=== PATIENT | male | born 1970 | race Caucasian/White ===

== ENCOUNTER 2020-11-10 08:23 | Outpatient (CLI) | payer BC, SELFPAY ==
[2020-11-10 09:20] LABS: Basophils Absolute Auto 0.1 K/mm3 (0.0-0.1); Basophils Percent Auto 0.8 % (0.2-1.2); Eosinophils Absolute Auto 0.2 K/mm3 (0-0.3); Eosinophils Percent Auto 2.6 % (0-4.4); Hematocrit 49.7 % (42.0-52.0); Hemoglobin 16.6 g/dL (14.0-18.0); Immature Granulocyte Absolute 0.02 K/mm3 (0.00-0.031); Immature Granulocyte Percent A 0.3 % (0-0.5); Lymphocytes Absolute Auto 1.99 K/mm3 (0.9-3.2); Lymphocytes Percent Auto 27.7 % (18.3-44.2); Mean Corpuscular HGB Conc 33.4 g/dl (32-36); Mean Corpuscular Hemoglobin 30.7 pg (26-34); Mean Platelet Volume 10.9 fl (7.4-10.4); Monocytes Absolute Auto 0.7 K/mm3 (0.1-0.6); Monocytes Percent Auto 9.2 % (2.6-8.5); Neutrophils Absolute Auto 4.3 K/mm3 (1.3-6.7); Neutrophils Percent Auto 59.4 % (45.5-73.1); Platelet Count Result 243 k/mm3 (150-375); Red Cell Distribution Width 12.4 % (11.5-14.5); White Blood Count 7.2 K/mm3 (4.5-10.0)
== END 2020-11-10 08:24 | disposition home or self-care (01) ==
PROVIDERS: PCP Family Medicine; Visit Provider Physician Assistant
DX: D72.829 Elevated white blood cell count, unspecified (principal)
CPT/HCPCS: 36415; 85025

== ENCOUNTER 2021-04-14 08:39 | Outpatient (CLI) | payer BC, SELFPAY ==
--- NOTE | ~2021-04-14 | XR_ITS ---
XR foot LT min 3V 04/14/2021 09:02 Indication: Left foot pain Procedure: 4 views left foot Comparison: No prior studies for comparison. Findings: There are mild degenerative changes at the tarsometatarsal joints. There is a degenerative calcaneal enthesophyte. Lisfranc joint is intact. Mild osteoarthritis of the first MTP joint. No fore ign bodies. Impression: 1: Mild polyarticular osteoarthritis. Reviewed, dictated and finalized at location A. Impression: 1: Mild polyarticular osteoarthritis.
== END 2021-04-14 08:40 | disposition home or self-care (01) ==
LOC: ANHIMG 08:44
PROVIDERS: PCP Family Medicine; Visit Provider Physician Assistant
DX: L84 Corns and callosities (principal); G57.93 Unspecified mononeuropathy of bilateral lower limbs; M19.072 Primary osteoarthritis, left ankle and foot
CPT/HCPCS: 73630

== ENCOUNTER 2021-09-18 09:49 | Outpatient (CLI) | payer BC, SELFPAY ==
[2021-09-18 10:28] LABS: Basophils Absolute Auto 0.1 K/mm3 (0.0-0.1); Eosinophils Absolute Auto 0.2 K/mm3 (0-0.3); Eosinophils Percent Auto 2.5 % (0-4.4); Hematocrit 53.6 % (42.0-52.0); Hemoglobin 17.9 g/dL (14.0-18.0); Immature Granulocyte Absolute 0.03 K/mm3 (0.00-0.031); Immature Granulocyte Percent A 0.4 % (0-0.5); Lymphocytes Absolute Auto 1.54 K/mm3 (0.9-3.2); Lymphocytes Percent Auto 19.3 % (18.3-44.2); Mean Corpuscular HGB Conc 33.4 g/dl (32-36); Mean Corpuscular Hemoglobin 31.7 pg (26-34); Mean Platelet Volume 10.5 fl (7.4-10.4); Monocytes Absolute Auto 0.8 K/mm3 (0.1-0.6); Monocytes Percent Auto 10.5 % (2.6-8.5); Neutrophils Absolute Auto 5.3 K/mm3 (1.3-6.7); Neutrophils Percent Auto 66.3 % (45.5-73.1); Platelet Count Result 212 k/mm3 (150-375); Red Blood Count 5.64 M/mm3 (4.6-6.20); Red Cell Distribution Width 13.2 % (11.5-14.5)
[2021-09-18 11:22] LABS: Alanine Aminotransferase 48 U/L (4-50); Albumin Level 4.3 g/dL (3.5-5.1); Alkaline Phosphatase 107 U/L (38-126); Anion Gap 5 mmol/L (8-16); Aspartate Amino Transferase 28 U/L (17-59); Bilirubin,Total 0.7 mg/dL (0.2-1.3); Blood Urea Nitrogen 13 mg/dL (9-20); Carbon Dioxide 30 mmol/L (22-30); Chloride 105 mmol/L (98-107); Cholesterol 180 mg/dL (0-200); Estimated Glomerular Filt Rate > 60; Glucose 100 mg/dL (65-110); HDL Direct 32 mg/dL; Potassium 4.4 mmol/L (3.4-5.0); Sodium 140 mmol/L (137-145); Triglycerides 118 mg/dL (<150)
[2021-09-18 11:34] LABS: LDL Cholesterol Direct 122 mg/dL
[2021-09-18 11:41] LABS: Hemoglobin A1C 5.7 % (<5.7)
[2021-09-18 11:51] LABS: Prostate Specific Antigen 0.7 ng/mL (< OR = 4.0)
== END 2021-09-18 09:50 | disposition home or self-care (01) ==
PROVIDERS: PCP Family Medicine; Visit Provider Nurse Practitioner Gerontology
DX: E78.2 Mixed hyperlipidemia (principal); R03.0 Elevated blood-pressure reading, without diagnosis of hypertension; R73.01 Impaired fasting glucose; Z12.5 Encounter for screening for malignant neoplasm of prostate
CPT/HCPCS: 36415; 80053; 80061; 83036; 84153; 85025; G0103

== ENCOUNTER 2021-10-28 08:35 | Outpatient (CLI) | payer BC, SELFPAY ==
--- NOTE | ~2021-10-28 | MR_ITS ---
EXAMINATION: MR foot LT wo/w con DATE: 10/28/2021 10:13 INDICATION: Left foot ulcer TECHNIQUE: Magnetic resonance imaging (MRI) of the left fore/mid foot was performed without and with 20 mL Multihance intravenous contrast. Sequences included axial, sagittal and coronal T1-weighted FSE , sagittal fluid sensitive FSE STIR, axial and coronal T2-weighted FS FSE, axial T1-weighted FS FSE a nd postcontrast axial and coronal T1-weighted FS FSE. COMPARISON: None FINDINGS: Bone alignment is normal. No fracture. Moderate osteoarthritis at the naviculocuneiform articulation with subarticular edema and cystlike changes at the distal aspect of the navicula. Additional mild to moderate osteoarthritis at the tarsal metatarsal joints with small amount of edema-like marrow signa l change at the base of the fourth metatarsal. Mild osteoarthritis at the first metatarsophalangeal a nd a few of the interphalangeal joints. Physiologic amount fluid in the joint spaces. There is focal skin thickening and a shallow ulceration plantar to the head of the second metatarsal with mild edema and non masslike enhancement in the underlying plantar subcutaneous fat. No abscess or evident deepe r extending sinus tract. No pathologic marrow signal changes to suggest osteomyelitis. 7 x 4 x 5 mm n onenhancing ganglion cyst plantar to the base of the fifth proximal phalanx. The visualized flexor an d extensor tendons as well as the Lisfranc ligament complex and the collateral ligament complex at th e metatarsophalangeal and interphalangeal joints are normal. Prominent fatty atrophy of the intrinsic musculature of the foot which could be related to chronic neuropathy. IMPRESSION: 1. Mild inflammatory change surrounding a shallow ulceration plantar to the head of the second metata rsal without underlying abscess or osteoarthritis. 2. Mild to moderate osteoarthritis most prominent at the naviculocuneiform articulation. Reviewed, dictated and finalized at location A. IMPRESSION: 1. Mild inflammatory change surrounding a shallow ulceration plantar to the hea d of the second metatarsal without underlying abscess or osteoarthritis. 2. Mild to moderate osteoarthritis most prominent at the naviculocuneiform von culation.
[2021-10-28 09:19] LABS: Estimated Glomerular Filt Rate > 60
== END 2021-10-28 08:36 | disposition home or self-care (01) ==
LOC: ANHIMG 08:37
PROVIDERS: PCP Family Medicine; Visit Provider Podiatrist Foot & Ankle Surgery
DX: L97.523 Non-pressure chronic ulcer of other part of left foot with necrosis of muscle (principal); G60.8 Other hereditary and idiopathic neuropathies; M19.072 Primary osteoarthritis, left ankle and foot
CPT/HCPCS: 73720; A9577

== ENCOUNTER 2022-12-07 13:21 | Inpatient (IN) | payer MEDICAID, SELFPAY ==
[2022-12-07] VITALS (15 sets, daily range): BP systolic 116–134; BP diastolic 58–80; PULSE 60–73; RESP 14–20; TEMP 36.3–36.9; O2SAT 95–100; BMI 34.4
--- NOTE | ~2022-12-07 | XR_ITS ---
EXAMINATION: XR foot RT min 3V DATE: 12/08/2022 18:27 INDICATION: Right foot cellulitis. TECHNIQUE: 3 views of right foot were obtained. COMPARISON: Right foot radiographs 12/07/2022 FINDINGS: There is severe hallux valgus. No acute fracture. There are old healed fractures of the ne cks of the fourth and fifth metatarsals. There is chronic deformity of the heads of the second and th ird metatarsals and base of the third proximal phalanx with bone volume loss. There is moderate osteo arthritis of first metatarsophalangeal joint and mild osteoarthritis of some of the interphalangeal j oints and midfoot joints. There is an enthesophyte at plantar aspect of calcaneal tuberosity. There i s an ulcer medial to first proximal phalanx. IMPRESSION: 1. No evidence of osteomyelitis. 2. Severe hallux valgus. 3. Polyarticular osteoarthritis. Reviewed, dictated and finalized at location A.
--- NOTE | ~2022-12-07 | XR_ITS ---
EXAMINATION: XR foot LT min 3V DATE: 12/07/2022 14:02 INDICATION: Left foot infection. TECHNIQUE: 4 views of left foot were obtained. COMPARISON: Left foot radiographs 04/14/2021 FINDINGS: There are changes of resection of head of second metatarsal. No fracture. There is mild ost eoarthritis of many of the interphalangeal joints and midfoot joints. There is an enthesophyte at ally ntar aspect of calcaneal tuberosity. IMPRESSION: 1. No evidence of osteomyelitis. 2. Polyarticular osteoarthritis. Reviewed, dictated and finalized at location A.
--- NOTE | ~2022-12-07 | XR_ITS ---
EXAMINATION: XR foot RT min 3V DATE: 12/07/2022 14:02 INDICATION: Right foot infection. TECHNIQUE: 4 views of right foot were obtained. COMPARISON: None. FINDINGS: There is severe hallux valgus. No acute fracture. There are old healed fractures of the nec ks of the fourth and fifth metatarsals. There is chronic deformity of the heads of the second and thi rd metatarsals and base of the third proximal phalanx with bone volume loss. There is moderate osteoa rthritis of first metatarsophalangeal joint and mild osteoarthritis of some of the interphalangeal doc ints and midfoot joints. There is an enthesophyte at plantar aspect of calcaneal tuberosity. There is skin irregularity medial to first proximal phalanx. IMPRESSION: 1. No evidence of osteomyelitis. 2. Severe hallux valgus. 3. Polyarticular osteoarthritis. Reviewed, dictated and finalized at location A.
--- NOTE | 2022-12-07 13:49 | ED.EXTPRO ---
HPI - Extremity Problem General Chief complaint: Extremity Problem,Nontraumatic Stated complaint: wound on left great toe Time Seen by Provider: 12/07/22 13:25 History of Present Illness HPI Narrative: 52-year-old male presented the emergency department for evaluation of bilateral foot wounds. Patient does have a history of a callus on his right foot and had been following with podiatry but states he has not had insurance and has not had podiatry follow-up. Patient states he did get a new job recently and has been on his feet more frequently. Patient states he did develop an ulcer and loss of the skin on his great toe on the left and has a worsening wound to the pad of the great toe on the right foot. Patient states he is not diabetic but does have neuropathy and has decree sensation in feet bilaterally. Related Data Allergies Allergy/AdvReac Type Severity Reaction Status Date / Time No Known Allergies Allergy Unverified 12/07/22 14:04 Review of Systems Review of Systems: All systems reviewed & are unremarkable except as noted in HPI and below PMFSH Past Medical History Medical History Alcohol use Cellulitis, leg Elevated BP without diagnosis of hypertension Obesity due to excess calories Polyneuropathy Family History Family History Father Kidney cancer, primary, with metastasis from kidney to other site Mother Rheumatoid arthritis Social History Social History Social History: Smoking packs per day: 2 Smoking cigarettes per day: 40.0 Years smoked: 15 Smoking pack-years: 30.00 Smoking status: Former smoker Tobacco type: cigarettes and smokeless tobacco Second hand tobacco smoke exposure: No Smoking end date: 08/04/04 Alcohol intake: current Drinks per week: 1 Alcohol use details: Occasionally Substance use: former Substance use type: marijuana Last use: Last usage was yesterday morning. Lack of Transportation: No Lack of Food: Never True Current Housing: I Have Housing Concerned About Future Housing: No Difficulty Paying Gas/Electric Bills: No Difficulty Paying for Meds: No Currently Unemployed: YES Education: High School Diploma/GED Difficulty w/ Childcare or Family Care: No Living arrangements: with family Additional living arrangements comments: Pt lives with his mother after his father passed. Occupation/Education: occupation Gender identity (if verbalized by the patient): Male Sexual Orientation (if Verbalized by the Patient): Straight or Heterosexual Spiritual care concerns: Yes (Yarsani) Exam Narrative: APPEARANCE: Well appearing, no pain, no distress, well-nourished. HEAD: normocephalic, atraumatic. EYES: PERRLA/EOMI, conjunctivae clear. NOSE: Normal no drainage NECK: Supple. No adenopathy, no masses. RESPIRATORY: Airway patent, respirations nonlabored. Clear to auscultation bilaterally, no rales, rhonchi, wheezing. CARDIOVASCULAR: Regular rate and rhythm without murmurs rubs or gallops. ABDOMINAL: Soft, nontender, nondistended, normal bowel sounds MUSCULOSKELETAL: Positive skin to the great toe on the left foot and erythema and swelling on the pad of the great toe on the right foot. Erythema dorsum of both feet NEURO: Alert. Cranial nerves II through XII intact. Grossly intact SKIN: Warm, dry. Normal Color Course Course Emergency Course: 52-year-old male presented emerged department for evaluation of worsening wounds on bilateral feet. Exam is concerning for cellulitis. Patient was started on Vanco cefepime and Flagyl. X-ray showed no evidence of acute osteomyelitis. Patient does have a leukocytosis of 16.6. Chemistries are similar to his baseline. Case was discussed with hospitalist patient was accepted for admission for antibiotics. Patient was
[2022-12-07 14:04] LABS: Basophils Absolute Auto 0.1 K/mm3 (0.0-0.1); Basophils Percent Auto 0.4 % (0.2-1.2); Eosinophils Absolute Auto 0.2 K/mm3 (0-0.3); Eosinophils Percent Auto 1.4 % (0-4.4); Hematocrit 42.9 % (42.0-52.0); Immature Granulocyte Absolute 0.09 K/mm3 (0.00-0.031); Immature Granulocyte Percent A 0.5 % (0-0.5); Lymphocytes Absolute Auto 1.47 K/mm3 (0.9-3.2); Lymphocytes Percent Auto 8.9 % (18.3-44.2); Mean Corpuscular HGB Conc 32.6 g/dl (32-36); Mean Corpuscular Hemoglobin 30.3 pg (26-34); Mean Corpuscular Volume 92.9 fl (80-100); Mean Platelet Volume 10.7 fl (7.4-10.4); Monocytes Absolute Auto 1.4 K/mm3 (0.1-0.6); Monocytes Percent Auto 8.2 % (2.6-8.5); Neutrophils Absolute Auto 13.3 K/mm3 (1.3-6.7); Neutrophils Percent Auto 80.6 % (45.5-73.1); Platelet Count Result 209 k/mm3 (150-375); Red Blood Count 4.62 M/mm3 (4.6-6.20); White Blood Count 16.6 K/mm3 (4.5-10.0)
[2022-12-07] MEDS: CEFEPIME 2 GM/NS 50 ML 2 GM/50 ML BAG IVPB (14:04)
[2022-12-07 14:27] LABS: Alanine Aminotransferase 37 U/L (6-50); Albumin Level 3.8 g/dL (3.5-5.1); Alkaline Phosphatase 92 U/L (38-126); Anion Gap 3 mmol/L (8-16); Aspartate Amino Transferase 31 U/L (17-59); Bilirubin,Total 1.3 mg/dL (0.2-1.3); Blood Urea Nitrogen 11 mg/dL (9-20); Calcium 8.4 mg/dL (8.4-10.2); Carbon Dioxide 32 mmol/L (22-30); Chloride 105 mmol/L (98-107); Estimated CRCL calculation 105 ml/min; Estimated Glomerular Filt Rate > 60; Glucose 103 mg/dL (65-110); Potassium 3.6 mmol/L (3.4-5.0); Sodium 140 mmol/L (137-145)
[2022-12-07] MEDS: metroNIDAZOLE 500 MG/ISO 100ML 500 MG/100 ML BAG 100 MG IVPB ×2 (14:30→21:35)
[2022-12-07] MEDS: ACETAMINOPHEN 500 MG TABLET 1000 MG PO (21:43)
--- NOTE | 2022-12-07 22:52 | PM.IMHP ---
H&P: HPI History of Present Illness Date/Time: 12/07/22 16:00 Chief Complaint: Foot wounds. Narrative: This is a 52-year-old male with history of MRSA skin and soft tissue infection who presented to the emergency department via private vehicle from home for evaluation of bilateral foot wounds. The patient provides the following history. He recently started a new job and he has been walking a lot more than usual. A couple of days ago he noticed a white blister forming on his left great toe and it is now to the point where the skin has started to peel away from the toe. He also reports a chronic callus on the right foot which has started to drain clear but occasionally blood tinged fluid. Today he noticed that his feet were a bit red, swollen, and warm and he came in for evaluation. He has a history of calluses and previously saw a electrical repairer but has not been able to see anybody for quite some time due to lapse in insurance. He does not really have any pain in the feet due to neuropathy. 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 He was afebrile on arrival to the emergency department with stable vital signs. White blood cell count was 16.6 and the rest of his labs were pretty unremarkable with a random glucose of 103. Imaging of both feet showed no evidence of osteomyelitis. He was started on cefepime, metronidazole, and vancomycin and he is being admitted in this setting. Review of Systems Review of Systems: Twelve systems were reviewed and are negative except for as per HPI. 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 No hardware in place. Family History Family History Father Kidney cancer, primary, with metastasis from kidney to other site Mother Rheumatoid arthritis Social History Social History (Updated 05/06/23 @ 23:09 by Radha Alicea PA-C) Social History: Surrogate medical decision maker: Sage Tran, son. Code status: Full code. Smoking packs per day: 2 Smoking cigarettes per day: 40.0 Years smoked: 15 Smoking pack-years: 30.00 Smoking status: Former smoker Tobacco type: cigarettes and smokeless tobacco Second hand tobacco smoke exposure: No Smoking end date: 08/04/04 Alcohol intake: current Drinks per week: 1 Substance use: former Substance use type: marijuana Last use: Last usage was yesterday morning. Lack of Transportation: No Lack of Food: Never True Current Housing: I Have Housing Concerned About Future Housing: No Difficulty Paying Gas/Electric Bills: No Difficulty Paying for Meds: No Currently Unemployed: YES Education: High School Diploma/GED Difficulty w/ Childcare or Family Care: No Living arrangements: alone Spiritual care concerns: Yes (Jew) Meds Home Medications and Allergies Allergies Allergy/AdvReac Type Severity Reaction Status Date / Time No Known Allergies Allergy Unverified 12/07/22 14:04 Vital Signs Vital Signs - 24 hr 12/07/22 13:26 12/07/22 14:21 12/07/22 14:30 Temperature 98.4 F Pulse Rate 71 Respiratory Rate 18 Blood Pressure 124/60 Pulse Oximetry 99 100 95 Oxygen Delivery Room Air 12/07/22 14:31 12/07/22 14:45 12/07/22 14:46 Temperature Pulse Rate Respiratory Rate Blood Pressure 131/78 134/80 Pulse Oximetry 100 100 99 Oxygen Delivery 12/07/22 15:00 12/07/22 15:02 12/07/22 15:17 Temperature Pul
[2022-12-08] MEDS: metroNIDAZOLE 500 MG/ISO 100ML 500 MG/100 ML BAG 100 MG IVPB ×3 (05:23→22:12)
[2022-12-08 05:45] VITALS: BP 124/70; PULSE 56; RESP 14; TEMP 36.4; O2SAT 98
--- NOTE | 2022-12-08 05:58 | PC.NURSE ---
mrsa and wound swabs collected this shift.
[2022-12-08 06:28] LABS: Hematocrit 40.8 % (42.0-52.0); Hemoglobin 13.1 g/dL (14.0-18.0); Mean Corpuscular HGB Conc 32.1 g/dl (32-36); Mean Corpuscular Hemoglobin 30.5 pg (26-34); Mean Corpuscular Volume 94.9 fl (80-100); Platelet Count Result 174 k/mm3 (150-375); Red Cell Distribution Width 13.2 % (11.5-14.5); White Blood Count 9.7 K/mm3 (4.5-10.0)
[2022-12-08 06:56] LABS: Anion Gap 5 mmol/L (8-16); Blood Urea Nitrogen 11 mg/dL (9-20); Carbon Dioxide 26 mmol/L (22-30); Chloride 106 mmol/L (98-107); Estimated CRCL calculation 122 ml/min; Estimated Glomerular Filt Rate > 60; Glucose 106 mg/dL (65-110); Potassium 3.4 mmol/L (3.4-5.0); Sodium 137 mmol/L (137-145)
[2022-12-08 07:26] LABS: Hemoglobin A1C 5.5 % (<5.7)
[2022-12-08] MEDS: ENOXAPARIN 40 MG/0.4 ML SYRINGE SUB-Q (08:08)
[2022-12-08 14:00] VITALS: BP 115/62; PULSE 68; RESP 18; TEMP 36.6; O2SAT 97
--- NOTE | 2022-12-08 14:00 | PM.IMPN ---
Progress Note: A&P Assessment and Plan (1) Cellulitis of both feet: Code(s): L03.115 - Cellulitis of right lower limb; L03.116 - Cellulitis of left lower limb Status: Acute Assessment and Plan: Presented to the ED for worsening bilateral foot wounds Xrays do not indicate any osteomyelitis, right foot: severe hallux valgus and OA, Left: OA WBC elevated at 16.6 Blood cultures gram positive cocci in chains Wound culture collected and pending A1c 5.5 General surgery consulted thank you for your help Continue cefepime, flagyl, and vancomycin Trend labs add pain medications as indicated wound consult (2) Foot callus: Code(s): L84 - Corns and callosities Status: Acute Assessment and Plan: Plan is as detailed above. (3) History of MRSA infection: Code(s): Z86.14 - Personal history of Methicillin resistant Staphylococcus aureus infection Status: Acute Assessment and Plan: Currently on vancomycin MRSA nasal swab pending. Time Spent With Patient Time: 51 minutes Time with patient: Greater than 35 minutes Subjective Date/time seen: 12/08/22 1400 Interval history: 12/08/22 1400 patient stated that he was doing okay. He stated that he was not having any pain. He was little warm and some sweats however he stated that is from the blankets. The currently he denies any chest pain, shortness a breath, nausea, vomiting, diarrhea or constipation. Blood cultures are positive in 1 set. Will await for further growth. 12/07/22? 16:00 This is a 52-year-old male with history of MRSA skin and soft tissue infection who presented to the emergency department via private vehicle from home for evaluation of bilateral foot wounds. The patient provides the following history. He recently started a new job and he has been walking a lot more than usual. A couple of days ago he noticed a white blister forming on his left great toe and it is now to the point where the skin has started to peel away from the toe. He also reports a chronic callus on the right foot which has started to drain clear but occasionally blood tinged fluid. Today he noticed that his feet were a bit red, swollen, and warm and he came in for evaluation. He has a history of calluses and previously saw a helicopter officer but has not been able to see anybody for quite some time due to lapse in insurance. He does not really have any pain in the feet due to neuropathy. 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 He was afebrile on arrival to the emergency department with stable vital signs. White blood cell count was 16.6 and the rest of his labs were pretty unremarkable with a random glucose of 103. Imaging of both feet showed no evidence of osteomyelitis. He was started on cefepime, metronidazole, and vancomycin and he is being admitted in this setting. Review of Systems Review of Systems: All systems reviewed & are unremarkable except as noted in HPI and below Exam Narrative: General: well-nourished, well-appearing 52-year-old female, sitting up in bed, comfortable, NARD Neuro: awake, alert and oriented x4, speech clear, no focal neuro deficits noted HEENMT: normocephalic, atraumatic, EOMI, sclerae anicteric, moist oral mucosa Respiratory: Clear to auscultation bilaterally without crackles, rhonchi or wheezes, nonlabored breathing Cardio: regular rate, regular rhythm with S1-S2 Abdomen: nondistended, normoactive bowel sounds, soft, nontender to palpation Extremities: Bilateral feet have multiple areas of skin breakdown/ wounds/abrasions some are draining fluid others have black areas. . Left big toe has an area of black and yellow slough. Right big toe is raw Skin: no rashes or lesions, warm and dry Psych: appropriate mood and affect, judgm
[2022-12-08] MEDS: SILVERGEL (ELTA) 45 ML 1 APPLIC TOPICAL (15:05)
[2022-12-08] MEDS: COLLAGENASE OINT 30 GM TUBE 1 APPLIC TOPICAL ×2 (15:05→20:44)
--- NOTE | 2022-12-08 16:07 | PM.CNGS ---
Assessment and Plan Assessment and plan (1) Ulcer of toe: Code(s): L97.509 - Non-pressure chronic ulcer of other part of unspecified foot with unspecified severity Status: Acute Assessment and Plan: left great toe ulcer clean and not infected. Start silver gel dressings. f/u parer for ill fitting work boots and outpatient care. No surgery needed. (2) Ulcer of right foot, limited to breakdown of skin: Code(s): L97.511 - Non-pressure chronic ulcer of other part of right foot limited to breakdown of skin Status: Acute Assessment and Plan: large blister from medial 1st MT callous over plantar 1st MT and extending up to web between toes 1 and 2. May need bedside debridement but will try Santyl now. Both feet poor hygiene and will be washed with soap and water daily. Does have cellulitis right foot. Will get plain films. (3) Foot callus: Code(s): L84 - Corns and callosities Status: Chronic Assessment and Plan: chronic but now with associated blister. Likely due to ill fitting boots new job. (4) Cellulitis of right foot: Code(s): L03.115 - Cellulitis of right lower limb Status: Acute Assessment and Plan: right foot swollen and warm, has cellulitis. Left foot does not. History of Present Illness Consult details Consult date: 12/08/22 Requesting physician: Radha Alicea PA-C Narrative: Patient is a 52 yo man who was admitted with foot and toe ulcers on both feet with associated cellulitis. He started a new job and was on his feet a lot in ill fitting steel toed boots. He doesn't have much feeling in either foot and noted he developed the ulcers. He was seen in ED and had elevated WBC. We were asked to see for surgical evaluation. Review of Systems Review of Systems: All systems reviewed & are unremarkable except as noted in HPI and below (HPI and those listed below) Constitutional: Constitutional: Denies chills and Denies fever(s) Cardiovascular: Cardiovascular: Denies chest pain, Denies diaphoresis, Denies dyspnea and Denies paroxysmal nocturnal dyspnea Respiratory: Respiratory: Denies chest congestion, Denies cough and Denies dyspnea Integumentary/Breasts: Skin/Breast: Denies lesions and Denies rash PMFSH Past Medical History Medical History Elevated BP without diagnosis of hypertension History of MRSA infection Obesity due to excess calories Polyneuropathy Surgical History Surgical History History of foot surgery 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 No hardware in place. Family History Family History Father Kidney cancer, primary, with metastasis from kidney to other site Mother Rheumatoid arthritis Social History Social History Social History: Surrogate medical decision maker: Sage Tran, son. Code status: Full code. Smoking packs per day: 2 Smoking cigarettes per day: 40.0 Years smoked: 15 Smoking pack-years: 30.00 Smoking status: Former smoker Tobacco type: cigarettes and smokeless tobacco Second hand tobacco smoke exposure: No Smoking end date: 08/04/04 Alcohol intake: current Drinks per week: 1 Substance use: former Substance use type: marijuana Last use: Last usage was yesterday morning. Lack of Transportation: No Lack of Food: Never True Current Housing: I Have Housing Concerned About Future Housing: No Difficulty Paying Gas/Electric Bills: No Difficulty Paying for Meds: No Currently Unemployed: YES Education: High School Diploma/GED Difficulty w/ Childcare or Family Care: No Living arrangements: alone Spiritual care concerns: Yes (Confucianist) Meds Home Medications and Allergies Home Medications Medication In
[2022-12-08 21:24] VITALS: BP 111/53; PULSE 53; RESP 14; TEMP 37.1; O2SAT 96
[2022-12-08] MEDS: CEFEPIME 2 GM/NS 50 ML 2 GM/50 ML BAG IVPB (23:14)
[2022-12-09 05:26] VITALS: BP 106/60; PULSE 60; RESP 14; TEMP 36.1; O2SAT 94
[2022-12-09 06:29] LABS: Basophils Absolute Auto 0.1 K/mm3 (0.0-0.1); Eosinophils Absolute Auto 0.3 K/mm3 (0-0.3); Eosinophils Percent Auto 4.6 % (0-4.4); Hematocrit 39.9 % (42.0-52.0); Hemoglobin 13.2 g/dL (14.0-18.0); Immature Granulocyte Absolute 0.02 K/mm3 (0.00-0.031); Immature Granulocyte Percent A 0.3 % (0-0.5); Lymphocytes Absolute Auto 1.54 K/mm3 (0.9-3.2); Lymphocytes Percent Auto 22.1 % (18.3-44.2); Mean Corpuscular HGB Conc 33.1 g/dl (32-36); Mean Corpuscular Hemoglobin 30.5 pg (26-34); Mean Corpuscular Volume 92.1 fl (80-100); Mean Platelet Volume 10.9 fl (7.4-10.4); Monocytes Absolute Auto 0.9 K/mm3 (0.1-0.6); Monocytes Percent Auto 12.8 % (2.6-8.5); Neutrophils Absolute Auto 4.1 K/mm3 (1.3-6.7); Neutrophils Percent Auto 59.2 % (45.5-73.1); Platelet Count Result 196 k/mm3 (150-375); Red Blood Count 4.33 M/mm3 (4.6-6.20); Red Cell Distribution Width 12.9 % (11.5-14.5)
[2022-12-09 06:38] LABS: Alanine Aminotransferase 30 U/L (6-50); Albumin Level 3.4 g/dL (3.5-5.1); Alkaline Phosphatase 78 U/L (38-126); Anion Gap 7 mmol/L (8-16); Aspartate Amino Transferase 20 U/L (17-59); Bilirubin,Total 0.5 mg/dL (0.2-1.3); Blood Urea Nitrogen 9 mg/dL (9-20); Carbon Dioxide 24 mmol/L (22-30); Chloride 106 mmol/L (98-107); Estimated CRCL calculation 122 ml/min; Estimated Glomerular Filt Rate > 60; Glucose 136 mg/dL (65-110); Magnesium 1.9 mg/dL (1.6-2.3); Potassium 3.4 mmol/L (3.4-5.0); Sodium 137 mmol/L (137-145)
[2022-12-09] MEDS: metroNIDAZOLE 500 MG/ISO 100ML 500 MG/100 ML BAG 100 MG IVPB (07:00)
[2022-12-09] MEDS: COLLAGENASE OINT 30 GM TUBE 1 APPLIC TOPICAL ×2 (07:00→21:05)
[2022-12-09] MEDS: SILVERGEL (ELTA) 45 ML 1 APPLIC TOPICAL (07:13)
--- NOTE | 2022-12-09 07:50 | PM.PNGS ---
Progress Note: A&P Assessment and Plan (1) Ulcer of right foot, limited to breakdown of skin: Code(s): L97.511 - Non-pressure chronic ulcer of other part of right foot limited to breakdown of skin Status: Acute Assessment and Plan: Improving. Wound nurses to see. Would appreciate their wound care recommendations. (2) Cellulitis of right foot: Code(s): L03.115 - Cellulitis of right lower limb Status: Acute Assessment and Plan: Improving (3) Foot callus: Code(s): L84 - Corns and callosities Status: Chronic Assessment and Plan: Stable. Needs podiatry follow-up. (4) Ulcer of toe: Code(s): L97.509 - Non-pressure chronic ulcer of other part of unspecified foot with unspecified severity Status: Acute Assessment and Plan: Clean. Appreciate dressing recommendations of wound care nurses. Subjective Subjective Date/Time Seen: 12/09/22 07:50 Patient reports: no new complaints Review of Systems Review of Systems: All systems reviewed & are unremarkable except as noted in HPI and below (HPI and those items noted below) Constitutional: Constitutional: Denies chills and Denies fever(s) Cardiovascular: Cardiovascular: Denies chest pain, Denies diaphoresis, Denies dyspnea and Denies paroxysmal nocturnal dyspnea Respiratory: Respiratory: Denies chest congestion, Denies cough and Denies dyspnea Integumentary/Breasts: Skin/Breast: Denies lesions and Denies rash Exam Extrem: Right lower extremity: foot (Plantar ulcer looks better. I removed the epithelial blister. ) Details: other (Callus intact and unchanged, less swelling.) Left lower extremity: foot (Great toe plantar ulcer clean and healing.) Objective Data Vital Signs Vital Signs: Vital Signs - 24 hr 12/08/22 08:00 12/08/22 14:00 12/08/22 21:24 Temperature 36.6 C 37.1 C Pulse Rate 68 53 L Respiratory Rate 18 14 Blood Pressure 115/62 111/53 L Pulse Oximetry 97 96 Oxygen Delivery Room Air 12/09/22 05:26 Temperature 36.1 C L Pulse Rate 60 Respiratory Rate 14 Blood Pressure 106/60 Pulse Oximetry 94 Oxygen Delivery Intake/Output Intake/Output: Intake & Output 12/06/22 12/07/22 12/08/22 12/09/22 23:59 23:59 23:59 23:59 Intake Total 890 4290 1000 Output Total 0 Balance 890 4290 1000 Meds/Results Medications: Active Medications Generic Name Dose Route Start Last Admin Trade Name [place] PRN Reason Stop Dose Admin Acetaminophen 650 mg 12/07/22 23:19 Acetaminophen 325 Mg Tablet PO Q6H PRN Mild Pain (1-3) or Fever Collagenase 1 applic 12/08/22 14:40 12/09/22 07:00 Collagenase Oint 30 Gm Tube TOPICAL 1 applic Q12HR JUDI Administration Enoxaparin Sodium 40 mg 12/08/22 09:00 12/08/22 08:08 Enoxaparin 40 Mg/0.4 Ml Syringe SUB-Q 40 mg DAILY JUDI Administration Cefepime HCl 2 gm in 50 mls @ 100 mls/hr 12/08/22 23:00 12/08/22 23:44 Maxipime 2 Gm/Ns 50 Ml IVPB Infused Q12HR JUDI Infusion Metronidazole 500 mg in 100 mls @ 100 mls/hr 12/07/22 22:00 12/09/22 07:00 Flagyl 500 Mg/Iso Soln 100 Ml IVPB 100 mls/hr Q8HR JUDI Administration Vancomycin HCl 1,750 mg in 500 mls @ 250 mls/hr 12/09/22 04:00 12/09/22 06:45 Vancomycin 1,750 Mg/D5w 500 Ml IVPB Infused Q12H JUDI Infusion Silver Nitrate 1 applic 12/08/22 14:35 12/09/22 07:13 Silvergel (Elta) 45 Ml TOPICAL 1 applic DAILY JUDI Administration Radiology Results: ITS Impressions Foot X-Ray 12/08/22 18:51 IMPRESSION: 1. No evidence of osteomyelitis. 2. Severe hallux valgus. 3. Polyarticular osteoarthritis. Labs Labs: Laboratory Results - last 24 hr 12/09/22 12/09/22 02:08 06:04 WBC 7.0 RBC 4.33 L Hgb 13.2 L Hct 39.9 L MCV 92.1 MCH 30.5 MCHC 33.1 RDW 12.9 Plt Count 196 MPV 10.9 H Immature Gran % (Auto) 0.3 Neut % (Auto) 59.2 Lymph % (Auto) 22.1 [place] % (Auto) 12.8 H Eos % (
[2022-12-09] MEDS: CEFEPIME 2 GM/NS 50 ML 2 GM/50 ML BAG IVPB (09:36)
[2022-12-09] MEDS: ENOXAPARIN 40 MG/0.4 ML SYRINGE SUB-Q (09:36)
--- NOTE | 2022-12-09 13:15 | PM.IMPN ---
Progress Note: A&P Assessment and Plan (1) Cellulitis of both feet: Code(s): L03.115 - Cellulitis of right lower limb; L03.116 - Cellulitis of left lower limb Status: Acute Assessment and Plan: Presented to the ED for worsening bilateral foot wounds Xrays do not indicate any osteomyelitis, right foot: severe hallux valgus and OA, Left: OA WBC elevated at 16.6, down to 7.0 Blood cultures Group A strep Wound culture collected and pending A1c 5.5 General surgery consulted thank you for your help Continue cefepime, flagyl, and vancomycin Trend labs add pain medications as indicated wound consult (2) Foot callus: Code(s): L84 - Corns and callosities Status: Chronic Assessment and Plan: Plan is as detailed above. (3) History of MRSA infection: Code(s): Z86.14 - Personal history of Methicillin resistant Staphylococcus aureus infection Status: Acute Assessment and Plan: Currently on vancomycin MRSA nasal swab pending. Time Spent With Patient Time: 48 minutes Time with patient: Greater than 35 minutes Subjective Date/time seen: 12/09/221314 Interval history: 12/09/221314 Patient is doing well. He is wanting to go home sooner than later. He currently denies any chest pain, shortness of breath, nausea, vomiting, diarrhea, constipation, weakness or fatigue. His feet are wrapped and he is still denying any pain. Spoke with him about carb intake and to stay away from sugar. Patient verbalized understanding. 12/08/22 1400 patient stated that he was doing okay. He stated that he was not having any pain. He was little warm and some sweats however he stated that is from the blankets. The currently he denies any chest pain, shortness a breath, nausea, vomiting, diarrhea or constipation. Blood cultures are positive in 1 set. Will await for further growth. 12/07/22? 16:00 This is a 52-year-old male with history of MRSA skin and soft tissue infection who presented to the emergency department via private vehicle from home for evaluation of bilateral foot wounds. The patient provides the following history. He recently started a new job and he has been walking a lot more than usual. A couple of days ago he noticed a white blister forming on his left great toe and it is now to the point where the skin has started to peel away from the toe. He also reports a chronic callus on the right foot which has started to drain clear but occasionally blood tinged fluid. Today he noticed that his feet were a bit red, swollen, and warm and he came in for evaluation. He has a history of calluses and previously saw a anchorer but has not been able to see anybody for quite some time due to lapse in insurance. He does not really have any pain in the feet due to neuropathy. 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 He was afebrile on arrival to the emergency department with stable vital signs. White blood cell count was 16.6 and the rest of his labs were pretty unremarkable with a random glucose of 103. Imaging of both feet showed no evidence of osteomyelitis. He was started on cefepime, metronidazole, and vancomycin and he is being admitted in this setting. Review of Systems Review of Systems: All systems reviewed & are unremarkable except as noted in HPI and below Exam Narrative: General: well-nourished, well-appearing 52-year-old female, sitting up in bed, comfortable, NARD Neuro: awake, alert and oriented x4, speech clear, no focal neuro deficits noted HEENMT: normocephalic, atraumatic, EOMI, sclerae anicteric, moist oral mucosa Respiratory: Clear to auscultation bilaterally without crackles, rhonchi or wheezes, nonlabored breathing Cardio: regular rate, regular rhythm with S1-S2 Abdomen: n
[2022-12-09 14:00] VITALS: BP 135/63; PULSE 51; RESP 16; TEMP 36.2; O2SAT 96
[2022-12-09 20:00] VITALS: PULSE 51; RESP 16; O2SAT 96
[2022-12-09] MEDS: cefTRIAXone 2 GM/NS 100 ML 2 GM/100 ML BAG IVPB (21:05)
[2022-12-09 22:00] VITALS: BP 124/75; PULSE 89; RESP 18; TEMP 35.8; O2SAT 97
[2022-12-10 06:00] VITALS: BP 106/49; PULSE 70; RESP 16; TEMP 35.8; O2SAT 97
[2022-12-10] MEDS: ENOXAPARIN 40 MG/0.4 ML SYRINGE SUB-Q (08:29)
--- NOTE | 2022-12-10 09:15 | PM.IMPN ---
Progress Note: A&P Assessment and Plan (1) Cellulitis of both feet: Code(s): L03.115 - Cellulitis of right lower limb; L03.116 - Cellulitis of left lower limb Status: Acute Assessment and Plan: Presented to the ED for worsening bilateral foot wounds Xrays do not indicate any osteomyelitis, right foot: severe hallux valgus and OA, Left: OA WBC elevated at 16.6, down to 7.0 Blood cultures Group A strep Wound culture gram positive cocci A1c 5.5 General surgery consulted thank you for your help Continue cefepime, flagyl, and vancomycin Trend labs add pain medications as indicated wound consult, and care per note Recommending follow up with podiatry (Dr. Oneil) (2) Foot callus: Code(s): L84 - Corns and callosities Status: Chronic Assessment and Plan: Plan is as detailed above. (3) History of MRSA infection: Code(s): Z86.14 - Personal history of Methicillin resistant Staphylococcus aureus infection Status: Acute Assessment and Plan: Currently on vancomycin MRSA nasal swab pending. Time Spent With Patient Time: 42 minutes Time with patient: Greater than 35 minutes Subjective Date/time seen: 12/10/22914 Interval history: 12/10/22914 patient is lying in bed states that he feels pretty good today. He denies any current chest pain, shortness a breath, nausea, vomiting, diarrhea or constipation. Spoke with him about a visual stylist that he saw outpatient Dr. Larkin however he stated that he is not seen her and was discharged from her. He also stated that he would like to changes stuff to this hospital as he is getting his insurance changed to hears well. Spoke with Shelby who works with Dr. Gray, who stated the patient should see Podiatry. Currently patient did grow group a strep in his blood culture. Repeat blood cultures are pending. Patient is anxious about get home however explained to him we need to wait for the 2nd set of cultures. 12/09/22 1315 Patient is doing well. He is wanting to go home sooner than later. He currently denies any chest pain, shortness of breath, nausea, vomiting, diarrhea, constipation, weakness or fatigue. His feet are wrapped and he is still denying any pain. Spoke with him about carb intake and to stay away from sugar. Patient verbalized understanding. 12/08/22 1400 patient stated that he was doing okay. He stated that he was not having any pain. He was little warm and some sweats however he stated that is from the blankets. The currently he denies any chest pain, shortness a breath, nausea, vomiting, diarrhea or constipation. Blood cultures are positive in 1 set. Will await for further growth. 12/07/22? 16:00 This is a 52-year-old male with history of MRSA skin and soft tissue infection who presented to the emergency department via private vehicle from home for evaluation of bilateral foot wounds. The patient provides the following history. He recently started a new job and he has been walking a lot more than usual. A couple of days ago he noticed a white blister forming on his left great toe and it is now to the point where the skin has started to peel away from the toe. He also reports a chronic callus on the right foot which has started to drain clear but occasionally blood tinged fluid. Today he noticed that his feet were a bit red, swollen, and warm and he came in for evaluation. He has a history of calluses and previously saw a visual stylist but has not been able to see anybody for quite some time due to lapse in insurance. He does not really have any pain in the feet due to neuropathy. 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 He was afebrile on arrival to the emergency department with stable vital signs. White blood cell count was
[2022-12-10] MEDS: SILVERGEL (ELTA) 45 ML 1 APPLIC TOPICAL (11:02)
[2022-12-10] MEDS: COLLAGENASE OINT 30 GM TUBE 1 APPLIC TOPICAL ×2 (11:03→21:00)
--- NOTE | 2022-12-10 12:17 | PM.PNGS ---
Progress Note: A&P Assessment and Plan (1) Ulcer of toe: Code(s): L97.509 - Non-pressure chronic ulcer of other part of unspecified foot with unspecified severity Status: Acute Assessment and Plan: Left foot ulcer clean and healing well. No signs of infection. Continue silver gel dressing changes. We would recommend Orthopedic consultation for charcot foot. We could potentially follow his wounds eventually as an outpatient, but he will need further evaluation by Podiatry or Orthopedics for his foot deformities. (2) Ulcer of right foot, limited to breakdown of skin: Code(s): L97.511 - Non-pressure chronic ulcer of other part of right foot limited to breakdown of skin Status: Acute Assessment and Plan: Right foot ulcer stable and improving with local wound care. Continue Santyl ointment for dressing changes. (3) Foot callus: Code(s): L84 - Corns and callosities Status: Chronic Assessment and Plan: Stable. Asked nursing to soak his right foot and wash both feet with soap and water prior to doing his dressing changes today. (4) Cellulitis of right foot: Code(s): L03.115 - Cellulitis of right lower limb Status: Acute Assessment and Plan: Improving with IV antibiotics, continue. Initial blood cx on 12/07 grew Group A strep, currently on IV Ceftriaxone. Repeat blood cx pending. Wound cx with skin jairo, no other organisms. Plan I have discussed the patient's case and plan of care with Dr. Morillo. Subjective Subjective Date/Time Seen: 12/10/22 10:17 Patient reports: no new complaints and afebrile Interval history: This is a 52 yo M who was admitted with foot and toe ulcers on both feet with associated cellulitis. Chart reviewed. He is on IV Ceftriaxone. He was seen by wound care nurses yesterday. He is now seen today and dressings were removed. No new complaints or changes overnight. No pain in his feet due to his neuropathy. Exam Const: General: comfortable and no acute distress Orientation/consciousness: patient oriented x3 Extrem: Right lower extremity: foot Details: vascular exam Details: dorsalis pedis pulse present and posterior tibial pulse present Left lower extremity: foot Details: vascular exam Details: dorsalis pedis pulse present and posterior tibial pulse present Other: Right foot with callous over medial 1st metatarsal and an open ulcer to the crease of the 1st toe plantar aspect extending between 1st and 2nd web space, minimal yellow slough and some pink tissue. No purulent drainage. Some localized surrounding erythema and edema that appears to have improved. Left 1st toe plantar surface is a superficial wound that appears to be an unroofed blister, with a pink healthy wound bed, no purulent drainage or surrounding erythema. Objective Data Vital Signs Vital Signs: Vital Signs - 24 hr 12/09/22 14:00 12/09/22 20:00 12/09/22 22:00 Temperature 97.1 F L 96.5 F L Pulse Rate 51 L 51 L 89 Respiratory Rate 16 16 18 Blood Pressure 135/63 124/75 Pulse Oximetry 96 96 97 Oxygen Delivery Room Air 12/10/22 06:00 12/10/22 08:00 Temperature 96.4 F L Pulse Rate 70 Respiratory Rate 16 Blood Pressure 106/49 L Pulse Oximetry 97 Oxygen Delivery Room Air Intake/Output Intake/Output: Intake & Output 12/07/22 12/08/22 12/09/22 12/10/22 23:59 23:59 23:59 23:59 Intake Total 890 4290 2200 1975 Output Total 0 Balance 890 4290 2200 1975 Meds/Results Medications: Active Medications Generic Name Dose Route Start Last Admin Trade Name Freq PRN Reason Stop Dose Admin Acetaminophen 650 mg 12/07/22 23:19 Acetaminophen 325 Mg Tablet PO Q6H PRN Mild Pain (1-3) or Fever Collagenase 1 applic 12/08/22 14:40 12/10/22 11:03 Collagenase Oint 30 Gm Tube TOPICAL 1 applic Q12HR JUDI Administration Enoxaparin Sodium 40 mg 12/08/22 09:00 12/10/22 08:29 Enoxaparin 40 Mg/0.4 Ml Syringe SUB-Q 40 mg
[2022-12-10 13:40] VITALS: BP 126/73; PULSE 52; RESP 20; TEMP 36.4; O2SAT 98
[2022-12-10] MEDS: levoFLOXacin 750 MG TABLET PO (17:29)
[2022-12-10 20:00] VITALS: O2SAT 98
[2022-12-10 20:27] VITALS: BP 138/73; PULSE 53; RESP 18; TEMP 35.9; O2SAT 99
[2022-12-11 06:15] VITALS: BP 117/71; PULSE 58; RESP 16; TEMP 35.7; O2SAT 100
[2022-12-11 07:33] LABS: Basophils Absolute Auto 0.1 K/mm3 (0.0-0.1); Basophils Percent Auto 0.8 % (0.2-1.2); Eosinophils Absolute Auto 0.3 K/mm3 (0-0.3); Hematocrit 46.6 % (42.0-52.0); Hemoglobin 15.4 g/dL (14.0-18.0); Immature Granulocyte Absolute 0.04 K/mm3 (0.00-0.031); Immature Granulocyte Percent A 0.6 % (0-0.5); Lymphocytes Absolute Auto 1.72 K/mm3 (0.9-3.2); Lymphocytes Percent Auto 23.9 % (18.3-44.2); Mean Corpuscular Hemoglobin 30.2 pg (26-34); Mean Corpuscular Volume 91.4 fl (80-100); Mean Platelet Volume 11.1 fl (7.4-10.4); Monocytes Absolute Auto 0.6 K/mm3 (0.1-0.6); Monocytes Percent Auto 7.6 % (2.6-8.5); Neutrophils Absolute Auto 4.5 K/mm3 (1.3-6.7); Neutrophils Percent Auto 63.1 % (45.5-73.1); Platelet Count Result 214 k/mm3 (150-375); Red Cell Distribution Width 12.6 % (11.5-14.5); White Blood Count 7.2 K/mm3 (4.5-10.0)
[2022-12-11] MEDS: ENOXAPARIN 40 MG/0.4 ML SYRINGE SUB-Q (09:27)
[2022-12-11] MEDS: COLLAGENASE OINT 30 GM TUBE 1 APPLIC TOPICAL (09:27)
[2022-12-11] MEDS: SILVERGEL (ELTA) 45 ML 1 APPLIC TOPICAL (09:28)
[2022-12-11 11:22] LABS: Alanine Aminotransferase 171 U/L (6-50); Albumin Level 3.8 g/dL (3.5-5.1); Alkaline Phosphatase 95 U/L (38-126); Anion Gap 7 mmol/L (8-16); Aspartate Amino Transferase 148 U/L (17-59); Bilirubin,Total 0.6 mg/dL (0.2-1.3); Blood Urea Nitrogen 10 mg/dL (9-20); Calcium 8.8 mg/dL (8.4-10.2); Carbon Dioxide 26 mmol/L (22-30); Chloride 106 mmol/L (98-107); Estimated CRCL calculation 138 ml/min; Estimated Glomerular Filt Rate > 60; Glucose 101 mg/dL (65-110); Potassium 3.9 mmol/L (3.4-5.0); Sodium 139 mmol/L (137-145)
[2022-12-11 13:26] LABS: Hepatitis B Surface Antigen Negative (Negative)
[2022-12-11 13:32] LABS: HAV RESULT Negative (Negative); Hepatitis B Core IgM Result Negative (Negative)
[2022-12-11 13:43] LABS: Hepatitis C Virus Antibody Negative (Negative)
--- NOTE | 2022-12-11 13:44 | PM.DS ---
DS: Admitting Diagnosis Discharge Date 12/11/2022 Admitting Diagnosis Left foot ulcer DS: Discharge Diagnosis Discharge Diagnosis (1) Bacteremia: Code(s): R78.81 - Bacteremia Status: Acute Assessment and Plan: Patient found to have group a strep in 1 of 2 blood cultures collected on 12/07/2022. Initially treated with cefepime, vancomycin, and Flagyl. Group a strep is pansensitive and patient was transition to levofloxacin. Repeat cultures collected on 12/09/2022 are negative to date after 48 hours. Final cultures will be monitored. Patient will continue levofloxacin to complete a 10 day course. Discussed case with ID PharmD. Leukocytosis resolved. Patient remained afebrile. (2) Ulcer of toe: Qualifiers: Laterality: left Code(s): L97.509 - Non-pressure chronic ulcer of other part of unspecified foot with unspecified severity Status: Acute Assessment and Plan: Patient presented with left foot ulcer. Evaluated by General surgery. Wound care provided with santyl and silver gel dressing changes. No signs of acute infection. Will continue with wound care at home and follow-up with General surgery for continued management. (3) Ulcer of right foot, limited to breakdown of skin: Code(s): L97.511 - Non-pressure chronic ulcer of other part of right foot limited to breakdown of skin Status: Acute Assessment and Plan: Right foot ulcer present. Wound culture with growth of group B strep. Patient has MRSA colonized in nares but no findings of MRSA in wound. Patient initially received IV antibiotics as above which was narrowed to p.o. Levaquin. Will continue to complete a 10 day course as described above. Wound care provided as above (4) Charcot's joint of foot: Code(s): M14.679 - Charcot's joint, unspecified ankle and foot Status: Acute Assessment and Plan: Patient has been referred to outpatient Podiatry for further evaluation (5) Transaminitis: Code(s): R74.01 - Elevation of levels of liver transaminase levels Status: Acute Assessment and Plan: LFTs normal on presentation and increased on day of discharge - AST 148 and ALT 171. Hepatitis panel negative. Patient asymptomatic. Possibly delayed response to acute illness. Avoid tylenol and recheck hepatic panel on Saturday 12/16. Follow up with PCP. Plan A1c is 5.5 DS: Summary Hospital Course Hospital Course: Date of admission: 12/07/2022 Date of discharge: 12/11/2022 Howard Oliva is a 52-year-old male with a history of polyneuropathy who presented to the emergency department on 12/07/2022 with bilateral foot wounds. On presentation to the ED, his vital signs were stable, he was afebrile, WBC 16.6, additional CBC and BMP unremarkable, foot x-ray showed no evidence of osteomyelitis, severe hallux valgus, and polyarticular osteoarthritis. He was admitted to the hospitalist service for further evaluation and management was seen in consultation by General surgery. Please see above for further details. Appropriate wound care was provided and patient was treated with antibiotics as above. He will continue p.o. Levaquin as an outpatient to complete a 10 day course. He will follow-up with General surgery to continue with wound care and will follow-up with podiatry as an outpatient. He live repeat hepatic panel in 5 days and will follow-up with his PCP. Discussed with the patient worrisome signs and symptoms for which to return and he was educated on his medications. Patient was educated on appropriate wound care. He was discharged in hemodynamically stable condition on 12/11/2022. Time Spent with Patient Time attestation: Total time spent providing and/or coordinating discharge services: Exam Narrative: General: well-nourished, well-appearing 52-year-old female, sitting up in bed Neuro: awake, alert and oriented x4, speech clear, no focal neuro defic
[2022-12-11 14:57] VITALS: BP 115/54; PULSE 50; RESP 18; TEMP 36.5; O2SAT 96
--- NOTE | 2022-12-11 15:21 | PM.PNGS ---
Progress Note: A&P Assessment and Plan (1) Ulcer of toe: Qualifiers: Laterality: left Code(s): L97.509 - Non-pressure chronic ulcer of other part of unspecified foot with unspecified severity Status: Acute Assessment and Plan: Foot wounds are stable and clean. Okay from our standpoint to discharge the patient with local wound care. Continue silver gel dressing changes on both foot wounds on discharge. Patient plans to change dressings himself and also have his ex- help as needed. Recommend follow-up with Podiatry who can follow his wounds as well. (2) Ulcer of right foot, limited to breakdown of skin: Code(s): L97.511 - Non-pressure chronic ulcer of other part of right foot limited to breakdown of skin Status: Acute (3) Foot callus: Code(s): L84 - Corns and callosities Status: Chronic Assessment and Plan: Stable. (4) Cellulitis of right foot: Code(s): L03.115 - Cellulitis of right lower limb Status: Acute Assessment and Plan: Improved. Antibiotics per Hospitalist. Plan I have discussed the patient's case and plan of care with Dr. Morillo. Subjective Subjective Date/Time Seen: 12/11/22 15:21 Patient reports: no new complaints and afebrile Interval history: Patient doing well. No changes or new complaints. Nursing has not changed his dressings yet. Review of Systems Review of Systems: ROS unchanged Exam Narrative: Right foot with callous over medial 1st metatarsal and an open ulcer to the crease of the 1st toe plantar aspect extending between 1st and 2nd web space, wound bed pink without any significant slough or necrotic tissue. No purulent drainage. No residual erythema, edema improved. Left 1st toe plantar surface is a superficial wound that appears to be an unroofed blister, with a pink healthy wound bed, no purulent drainage or surrounding erythema. Const: General: comfortable and no acute distress Objective Data Vital Signs Vital Signs: Vital Signs - 24 hr 12/10/22 20:00 12/10/22 20:27 12/11/22 06:15 Temperature 96.7 F L 96.3 F L Pulse Rate 53 L 58 L Respiratory Rate 18 16 Blood Pressure 138/73 117/71 Pulse Oximetry 98 99 100 Oxygen Delivery Room Air 12/11/22 09:20 Temperature Pulse Rate Respiratory Rate Blood Pressure Pulse Oximetry Oxygen Delivery Room Air Intake/Output Intake/Output: Intake & Output 12/08/22 12/09/22 12/10/22 12/11/22 23:59 23:59 23:59 23:59 Intake Total 4290 2200 2420 590 Balance 4290 2200 2420 590 Meds/Results Medications: Active Medications Generic Name Dose Route Start Last Admin Trade Name Freq PRN Reason Stop Dose Admin Acetaminophen 650 mg 12/07/22 23:19 Acetaminophen 325 Mg Tablet PO Q6H PRN Mild Pain (1-3) or Fever Collagenase 1 applic 12/08/22 14:40 12/11/22 09:27 Collagenase Oint 30 Gm Tube TOPICAL 1 applic Q12HR JUDI Administration Enoxaparin Sodium 40 mg 12/08/22 09:00 12/11/22 09:27 Enoxaparin 40 Mg/0.4 Ml Syringe SUB-Q 40 mg DAILY JUDI Administration Levofloxacin 750 mg 12/10/22 16:00 12/10/22 17:29 Levofloxacin 750 Mg Tablet PO 750 mg Q24H JUDI Administration Silver Nitrate 1 applic 12/08/22 14:35 12/11/22 09:28 Silvergel (Elta) 45 Ml TOPICAL 1 applic DAILY JUDI Administration Radiology Results: ITS Impressions Foot X-Ray 12/08/22 18:51 IMPRESSION: 1. No evidence of osteomyelitis. 2. Severe hallux valgus. 3. Polyarticular osteoarthritis. Labs Labs: Laboratory Results - last 24 hr 12/11/22 12/11/22 12/11/22 07:07 08:26 10:25 WBC 7.2 RBC 5.10 Hgb 15.4 Hct 46.6 MCV 91.4 MCH 30.2 MCHC 33.0 RDW 12.6 Plt Count 214 MPV 11.1 H Immature Gran % (Auto) 0.6 H Neut % (Auto) 63.1 Lymph % (Auto) 23.9 Brule % (Auto) 7.6 Eos % (Auto) 4.0 Baso % (Auto) 0.8 Lymph # (Auto) 1.72 Brule # (Auto)
[2022-12-11] MEDS: levoFLOXacin 750 MG TABLET PO (15:47)
== END 2022-12-11 16:40 | disposition home or self-care (01) | DRG 383 ==
LOC: ANHED 13:57 → ANH3MEDSUR 15:51
PROVIDERS: Nurse Practitioner; Physician Assistant; Admitting Provider Chiropractor; Emergency Provider Emergency Medicine; PCP Family Medicine; Visit Provider Physician Assistant
DX: L03.115 Cellulitis of right lower limb (principal); R78.81 Bacteremia; L97.511 Non-pressure chronic ulcer of other part of right foot limited to breakdown of skin; G62.9 Polyneuropathy, unspecified; L97.521 Non-pressure chronic ulcer of other part of left foot limited to breakdown of skin; L03.116 Cellulitis of left lower limb; L84 Corns and callosities; E66.09 Other obesity due to excess calories; M14.679 Charcot's joint, unspecified ankle and foot; B95.0 Streptococcus, group A, as the cause of diseases classified elsewhere; R03.0 Elevated blood-pressure reading, without diagnosis of hypertension; R74.01 Elevation of levels of liver transaminase levels; Z87.891 Personal history of nicotine dependence; Z22.322 Carrier or suspected carrier of Methicillin resistant Staphylococcus aureus
CPT/HCPCS: 36415; 73630; 80048; 80053; 80074; 80202; 83036; 83735; 85025; 85027; 87040; 87070; 87081; 87147; 87181; 87186; 87205; 96365; 96366; 96367; 96372; 96375; 99285; A9270; G0378; J0692; J0696; J1650; J3370